=== PATIENT | male | born 1925 | race Caucasian/White ===

== ENCOUNTER → 2017-03-27 | Outpatient (CLI) | payer MEDICARE ==
[~2017-03-27] MED LIST: ACET325 PO; ACET500; AMPI500; ASPI81EC; BISA10S PR; DOC250 PO; DOCU100 PO; LANS30EC; MINOIL PR; MIRT15 PO; MOM PO; OXYACE5T PO; PSYL5.85P PO; SENN187 PO; STOOL SOFTENER; TAMS.4ER PO; [UNRECOGNIZED DRUG - OTHER]; [UNRECOGNIZED DRUG - REMARK]
== END ==
LOC: LAB EV 11:29
DX: N39.0 Urinary tract infection, site not specified (principal)
CPT/HCPCS: 87077; 87086; 87186